=== PATIENT | male | born 1990 | race Caucasian/White ===

== ENCOUNTER 2018-07-15 16:01 | Emergency (ER) | payer OTHER | END 2018-07-15 16:27 | disposition home or self-care (01) | LOC: BURERS 16:01 | DX: K04.7 Periapical abscess without sinus (principal); F17.220 Nicotine dependence, chewing tobacco, uncomplicated | CPT/HCPCS: 99282 ==

== ENCOUNTER 2021-08-20 21:10 | Emergency (ER) | payer OTHER | END 2021-08-20 21:50 | disposition home or self-care (01) | LOC: BURERS 21:10 | DX: S90.02XA Contusion of left ankle, initial encounter (principal); F17.210 Nicotine dependence, cigarettes, uncomplicated; W20.8XXA Other cause of strike by thrown, projected or falling object, initial encounter ==

== ENCOUNTER 2021-10-08 14:34 | Emergency (ER) | payer MEDICAID, OTHER ==
[2021-10-08] MEDS ORDERED: Tetracaine 0.5% PF 4 ML BOT ONE (14:49)
[2021-10-08] MEDS ORDERED: Fluorescein Opthalmic Strip ONE (14:49)
== END 2021-10-08 15:06 | disposition home or self-care (01) ==
LOC: BURERS 14:34
DX: T15.01XA Foreign body in cornea, right eye, initial encounter (principal); F17.210 Nicotine dependence, cigarettes, uncomplicated; W45.8XXA Other foreign body or object entering through skin, initial encounter
CPT/HCPCS: 99283

== ENCOUNTER 2022-03-26 11:49 | Emergency (ER) | payer MEDICAID ==
[2022-03-26] MEDS ORDERED: Dexamethasone 4 MG TAB ONE (12:23)
== END 2022-03-26 12:25 | disposition home or self-care (01) ==
LOC: BURERS 11:49
DX: J01.90 Acute sinusitis, unspecified (principal); F17.210 Nicotine dependence, cigarettes, uncomplicated
CPT/HCPCS: 99283; J8540